=== PATIENT | male | born 1985 | race Two or more races ===

== ENCOUNTER 2019-10-07 08:56 | Outpatient (CLI) | payer OTHER | END 2019-10-07 09:22 | disposition home or self-care (01) | LOC: SONOGRAMA 08:56 | PROVIDERS: ATTEND Pathology Anatomic Pathology & Clinical Pathology | DX: E03.8 Other specified hypothyroidism (principal) ==

== ENCOUNTER 2020-01-27 13:10 | Outpatient (CLI) | payer OTHER | END 2020-01-27 13:44 | disposition home or self-care (01) | LOC: NUCLEAR 13:10 | PROVIDERS: ATTEND Internal Medicine Sports Medicine | DX: C73 Malignant neoplasm of thyroid gland (principal); E89.0 Postprocedural hypothyroidism | CPT/HCPCS: 79005; A9517 ==

== ENCOUNTER 2020-01-31 13:19 | Outpatient (CLI) | payer OTHER | END 2020-01-31 13:42 | disposition home or self-care (01) | LOC: NUCLEAR 13:19 | PROVIDERS: ATTEND Internal Medicine Sports Medicine | DX: C73 Malignant neoplasm of thyroid gland (principal); E89.0 Postprocedural hypothyroidism ==

== ENCOUNTER 2021-02-02 13:38 | Outpatient (CLI) | payer OTHER | END 2021-02-02 13:39 | disposition home or self-care (01) | LOC: NUCLEAR 13:38 | PROVIDERS: ATTEND Internal Medicine Sports Medicine | DX: C73 Malignant neoplasm of thyroid gland (principal) | CPT/HCPCS: 78018; 78020; A9528 ==